=== PATIENT | male | born 1965 | race Caucasian/White ===

== ENCOUNTER 2020-05-17 04:01 | Inpatient (IN) | payer OTHER ==
[~2020-05-17] VITALS: Ht 177.8 cm; Wt 111.1 kg
--- NOTE | 2020-05-17 04:01 | NUR ---
0355 > code cardiac paged
[2020-05-17] MEDS ORDERED: FENTANYL PF 100 MCG/2ML ONE (04:03)
[2020-05-17] MEDS ORDERED: TICAGRELOR 90 MG TABLET ONE (04:03)
[2020-05-17] MEDS ORDERED: MIDAZOLAM 1 MG/ML, 5ML ONE (04:03)
[2020-05-17] MEDS ORDERED: VERAPAMIL 2.5 MG/ML, 2ML ONE (04:04)
[2020-05-17] MEDS ORDERED: HEPARIN 1,000 UNITS/ML, 10ML ONE (04:04)
[2020-05-17] MEDS ORDERED: NITROGLYCERIN 5 MG/ML, 10ML ONE (04:04)
[2020-05-17] MEDS ORDERED: LIDOCAINE 2%, 20ML ONE (04:04)
[2020-05-17] MEDS ORDERED: BIVALIRUDIN 250 MG ONE ×2 (04:04→04:50)
--- NOTE | 2020-05-17 04:08 | NUR ---
PT TRANSPORTED TO [facility] DIRECTLY WITH DR. VALE AT BEDSIDE
[2020-05-17] MEDS ORDERED: MORPHINE SULFATE 4 MG/ML, 1ML ONE (04:59)
[2020-05-17] MEDS ORDERED: BISACODYL 10 MG SUPP PR PRN (05:00)
[2020-05-17] MEDS ORDERED: POLYETHYLENE GLYCOL 17 GM PACKET PO PRN (05:00)
[2020-05-17] MEDS ORDERED: NITROGLYCERIN 0.4 MG BOTTLE (25 TABS) SL PRN (05:00)
[2020-05-17] MEDS ORDERED: morphine SULFATE 10 MG/ML, 1ML IVPush PRN (05:00)
[2020-05-17] MEDS ORDERED: DOCUSATE 100 MG CAPSULE PO PRN (05:00)
[2020-05-17] MEDS ORDERED: ACETAMINOPHEN 325 MG TABLET PO PRN (05:00)
[2020-05-17] MEDS ORDERED: ONDANSETRON ODT 4 MG PO PRN (05:00)
[2020-05-17] MEDS ORDERED: ONDANSETRON 2MG/ML, 2ML IVPush PRN (05:00)
[2020-05-17] MEDS ORDERED: PROMETHAZINE 25 MG/ML, 1ML IM PRN (05:00)
[2020-05-17] MEDS ORDERED: hydrALAzine 20 MG/ML, 1ML IVPush PRN (05:00)
[2020-05-17] MEDS ORDERED: OXYcodone IR 5MG TABLET PO PRN (05:00)
[2020-05-17] MEDS ORDERED: SODIUM CHLORIDE 0.9% 1,000 ML IV SCH (05:30)
[2020-05-17] MEDS ORDERED: BIVALIRUDIN 250 MG in SODIUM CHLORIDE 0.9% 50 ML IV SCH (05:30)
[2020-05-17 05:55] LABS: BASOPHILS % (AUTO) 1 % (0-1); EOSINOPHILS % (AUTO) 2 % (1-7); LYMPHOCYTES % (AUTO) 24 % (22-44); MEAN CORPUSCULAR HEMOGLOBIN 30.9 pg (27.5-34.5); MEAN CORPUSCULAR HGB CONC 33.5 g/dL (33.2-36.2); MEAN PLATELET VOLUME 7.5 fL (7.4-10.4); MONOCYTES % (AUTO) 9 % (2-9); NEUTROPHILS % (AUTO) 65 % (42-75); PLATELET COUNT 345 x10^3/uL (130-400); RED BLOOD COUNT 4.99 x10^6/uL (4.38-5.82); RED CELL DISTRIBUTION WIDTH 13.8 % (9.4-14.8)
[2020-05-17 06:04] LABS: MD NO
[2020-05-17 06:12] LABS: ALBUMIN 3.6 g/dL (3.4-5.0); ANION GAP 6 mmol/L (5-15); CALCIUM 8.6 mg/dL (8.5-10.1); CHLORIDE 112 mmol/L (98-107)
[2020-05-17] MEDS ORDERED: BENA20TA54 PO (06:13)
[2020-05-17 06:19] LABS: ALANINE AMINOTRANSFERASE 41 U/L (12-78); ALKALINE PHOSPHATASE 51 U/L (45-117); BILIRUBIN,TOTAL 0.5 mg/dL (0.2-1.0); CREATININE 1.11 mg/dL (0.7-1.3); TOTAL PROTEIN 7.2 g/dL (6.4-8.2)
[2020-05-17] MEDS: ATORVASTATIN 80 MG TABLET PO SCH ×2 (06:26→21:55)
[2020-05-17] MEDS: METOPROLOL TARTRATE 25 MG TAB PO SCH ×2 (06:27→17:14)
[2020-05-17 06:31] LABS: INTERNATIONAL NORMALIZED RATIO 4.64 (0.93-1.1)
[2020-05-17 06:32] LABS: PROTHROMBIN TIME 48.2 Seconds (9.6-11.5)
[2020-05-17 06:35] LABS: PARTIAL THROMBOPLASTIN TIME > 95 Seconds (25-31)
[2020-05-17] MEDS: ASPIRIN 81 MG TABLET EC PO SCH (08:47)
[2020-05-17] MEDS: TICAGRELOR 90 MG TABLET PO SCH ×2 (08:47→21:55)
[2020-05-17 20:00] VITALS: BP 136/86
[2020-05-18 02:00] VITALS: BP 121/79
[2020-05-18 05:21] LABS: BASOPHILS % (AUTO) 1 % (0-1); EOSINOPHILS % (AUTO) 3 % (1-7); LYMPHOCYTES % (AUTO) 17 % (22-44); MEAN CORPUSCULAR HGB CONC 34.2 g/dL (33.2-36.2); MEAN PLATELET VOLUME 7.7 fL (7.4-10.4); MONOCYTES % (AUTO) 10 % (2-9); NEUTROPHILS % (AUTO) 69 % (42-75); PLATELET COUNT 344 x10^3/uL (130-400); RED BLOOD COUNT 4.97 x10^6/uL (4.38-5.82); RED CELL DISTRIBUTION WIDTH 13.9 % (9.4-14.8)
[2020-05-18 05:22] LABS: MD NO
[2020-05-18 05:29] LABS: ALBUMIN 3.4 g/dL (3.4-5.0); ANION GAP 8 mmol/L (5-15); CALCIUM 8.5 mg/dL (8.5-10.1); CHLORIDE 110 mmol/L (98-107)
[2020-05-18 05:39] LABS: ALANINE AMINOTRANSFERASE 49 U/L (12-78); ALKALINE PHOSPHATASE 52 U/L (45-117); BILIRUBIN,TOTAL 0.5 mg/dL (0.2-1.0); CHOL/HDL RATIO 4.4; CHOLESTEROL, TOTAL 172 mg/dL (140-239); CREATININE 1.12 mg/dL (0.7-1.3); HDL CHOL % 23 % (26-37); HDL CHOLESTEROL (DIRECT) 39 mg/dL (40-60); LDL CHOLESTEROL,CALCULATED 106 mg/dL (54-169); LDL/HDL RATIO 2.7 (0.5-3.0); TOTAL PROTEIN 6.9 g/dL (6.4-8.2); TRIGLYCERIDES 137 mg/dL (50-200); VLDL CHOLESTEROL 27 mg/dL (0-25)
[2020-05-18] MEDS: METOPROLOL TARTRATE 25 MG TAB PO SCH ×2 (06:01→17:18)
[2020-05-18 07:02] VITALS: BP 106/67
[2020-05-18] MEDS: TICAGRELOR 90 MG TABLET PO SCH ×2 (09:24→20:02)
[2020-05-18] MEDS: ASPIRIN 81 MG TABLET EC PO SCH (09:24)
[2020-05-18 13:18] VITALS: BP 144/83
[2020-05-18 20:00] VITALS: BP 135/88
[2020-05-18] MEDS: ATORVASTATIN 80 MG TABLET PO SCH (20:02)
[2020-05-19 01:50] VITALS: BP 99/64
[2020-05-19] MEDS: METOPROLOL TARTRATE 25 MG TAB PO SCH (05:31)
[2020-05-19 06:36] VITALS: BP 113/71
[2020-05-19] MEDS ORDERED: NITR0.4T28 SL (07:55)
[2020-05-19] MEDS ORDERED: TICA90TA PO (07:55)
[2020-05-19] MEDS ORDERED: ASPI81TA45 PO (07:55)
[2020-05-19] MEDS ORDERED: METO25TA35 PO (07:55)
[2020-05-19] MEDS ORDERED: ATOR-2 PO (07:55)
[2020-05-19] MEDS: TICAGRELOR 90 MG TABLET PO SCH (08:19)
[2020-05-19] MEDS: ASPIRIN 81 MG TABLET EC PO SCH (08:19)
[2020-05-19] MEDS ORDERED: FLU VACCINE PER PHARMACY IM ONE (10:00)
[2020-05-19] MEDS ORDERED: FLU VACC QS2020-21(6MOS UP)/PF 60MCG/0.5 ML SYR IM-VACC ONE (10:00)
== END 2020-05-19 10:15 | disposition home or self-care (01) | DRG 247 ==
LOC: ED 04:08 → EDIP 04:18 → CCU 05:18 → 5SO 18:32 → DCLOUNGE 05-19 10:00
PROVIDERS: ADMIT Internal Medicine; ATTEND Internal Medicine
PROC: 027236Z Dilation of Coronary Artery, Three Arteries with Three Drug-eluting Intraluminal Devices, Percutaneous Approach (ICD-10-PCS; principal; 2020-05-17)
PROC: 4A023N7 Measurement of Cardiac Sampling and Pressure, Left Heart, Percutaneous Approach (ICD-10-PCS; 2020-05-17)
PROC: B2111ZZ Fluoroscopy of Multiple Coronary Arteries using Low Osmolar Contrast (ICD-10-PCS; 2020-05-17)
DX: I21.19 ST elevation (STEMI) myocardial infarction involving other coronary artery of inferior wall (principal); I10 Essential (primary) hypertension; E78.5 Hyperlipidemia, unspecified; I25.10 Atherosclerotic heart disease of native coronary artery without angina pectoris; Z82.49 Family history of ischemic heart disease and other diseases of the circulatory system; Z90.49 Acquired absence of other specified parts of digestive tract; Z79.899 Other long term (current) drug therapy; Z88.2 Allergy status to sulfonamides; Z23 Encounter for immunization
CPT/HCPCS: 36415; 93458; 96374; 99291; C9600; J3490; 80053; 80061; 83735; 83880; 84443; 84484; 85025; 85610; 85730; 87081; 90686; 93005; 93306; 93356; 99156; 99157; C1769; C1894; G0378; J0583; J1644; J2250; J3010; C1725; C1874; C1887; J2270; Q9967